=== PATIENT | male | born 1970 | race African-American/Black ===

== ENCOUNTER 2022-10-08 21:08 | Emergency (ER) | payer OTHER, SELFPAY ==
--- NOTE | ~2022-10-08 | US_ITS ---
EXAMINATION: US ABDOMEN LIMITED CLINICAL INFORMATION: Elevated bilirubin. Nausea and vomiting.. COMPARISON: None TECHNIQUE: Real-time imaging of the right upper quadrant abdominal viscera. FINDINGS: GALLBLADDER: Small amount of sludge in the gallbladder lumen. The gallbladder is physiologically distended without evidence of stones, polyps, wall thickening or pericholecystic fluid. COMMON BILE DUCT: Normal in caliber measuring 0.3 cm in diameter. FREE FLUID: None. US/US abdomen limited IMPRESSION: Small amount of gallbladder sludge. No inflammation. Normal caliber common bile duct.
--- NOTE | ~2022-10-08 | XR_ITS ---
EXAMINATION: XR ABDOMEN COMPLETE CLINICAL INDICATION: Question constipation COMPARISON: None TECHNIQUE: 2 views of the abdomen. FINDINGS: Nonobstructing bowel gas pattern. No dilated loops of bowel. Scattered gas and stool throughout the colon with mild colonic stool burden. No free air on the upright view. No air-fluid levels. The lung bases are clear. No acute osseous abnormality. XR/XR abdomen min 2V IMPRESSION: Mild colonic stool burden.
[2022-10-08 21:14] VITALS: BP 165/85; PULSE 101; RESP 16; TEMP 36.7; O2SAT 98; BMI 31.6
[2022-10-08 21:50] LABS: MANUAL DIFF FLAG NO
[2022-10-08 21:54] LABS: Basophils Absolute Auto 0.1 X10*3/uL (0.0-0.2); Basophils Percent Auto 0.4 % (0-2); Eosinophils Absolute Auto 0.1 X10*3/uL (0.0-0.4); Eosinophils Percent Auto 0.6 % (0-4); Hematocrit 46.8 % (42.0-52.0); Hemoglobin 16.4 g/dl (14.0-18.0); Imm Gran Abs Auto 0.04 X10*3/uL (0.00-0.03); Imm Gran Pct Auto 0.4 % (0.0-0.4); Lymphocytes Absolute Auto 2.6 X10*3/uL (1.2-4.9); Mean Corpuscular Hemoglobin 29.7 pg (27.0-33.0); Mean Corpuscular Volume 84.6 fL (80.0-98.0); Mean Platelet Volume 9.6 fL (9.4-12.4); Monocytes Absolute Auto 0.8 X10*3/uL (0.1-1.2); Monocytes Percent Auto 7.3 % (2-11); Neutrophils Absolute Auto 7.7 x10*3/uL (2.0-8.3); Neutrophils Percent Auto 68.3 % (45-73); Platelet Count 262 X10*3/uL (160-400); Red Blood Count 5.53 X10*6/uL (4.60-5.80); Red Cell Distribution Width 12.6 % (11.0-16.0); White Blood Count 11.3 X10*3/uL (4.8-10.8)
[2022-10-08 22:16] LABS: Alanine Aminotransferase 53 U/L (0-40); Albumin Level 4.8 g/dL (3.5-5.0); Alkaline Phosphatase 130 U/L (39-117); Anion Gap 18 (12-20); Aspartate Amino Transferase 56 U/L (5-37); Bilirubin Total 1.1 mg/dL (0.0-1.0); Blood Urea Nitrogen 10 mg/dL (9-16); Calcium 9.7 mg/dL (8.4-10.2); Carbon Dioxide 24 mmol/L (22-29); Chloride 102 mmol/L (96-108); Creatinine Clr Calc Pharmacy 89.9; Estimated Glomerular Filt Rate > 60; Glucose Random 91 mg/dL (60-115); Potassium 4.2 mmol/L (3.3-5.1); Sodium 140 mmol/L (135-145); Total Protein 7.9 g/dL (6.5-8.0)
--- NOTE | 2022-10-08 23:37 | ED.GENADULT ---
HPI - General Adult General Chief complaint: Abdominal Pain Stated complaint: bilateral lower leg swelling,abd pain Time Seen by Provider: 10/08/22 23:12 Source: patient and RN notes reviewed Mode of arrival: ambulatory Limitations: no limitations History of Present Illness HPI narrative: 52-year-old male presents for evaluation of multiple complaints The patient is in triage assessment states he is here for he had ?diabetic sore toe left foot, not digesting food, no bowel movements in 3 days. When I 1st walked in the room the patient reports ?my blood pressure has stopped working and my blood is not pumping. ? He also reports that his ?kidneys are shutting down because having pain since earlier. ? Patient reports that his abdomen is ?full of water. ? He reports discoloration to his feet He states all this happened a few days Patient reports ?I have a all of the signs of cancer. ? Related Data Previous Rx's Medication Instructions Recorded polyethylene glycol 3350 17 17 g PO DAILY 2 weeks #238 grams 10/09/22 gram/dose oral powder (Miralax) Allergies Allergy/AdvReac Type Severity Reaction Status Date / Time Penicillins Allergy Rash Verified 10/08/22 21:31 Review of Systems Constitutional: Constitutional: Reports body ache(s), Denies chills, Denies fever(s), Reports malaise and Reports weakness Eyes: Eyes: Denies blurry vision ENT: Denies sore throat Cardiovascular: Cardiovascular: Denies chest pain and Denies dyspnea Respiratory: Respiratory: Denies cough and Denies dyspnea Gastrointestinal: Gastrointestinal: Reports abdominal pain, Reports bloating, Reports constipation and Reports diarrhea Genitourinary: Genitourinary: Reports urinary hesitancy Integumentary/Breasts: Skin/Breast: Reports wounds Neurologic: Reports weakness PMFSH Social History Social History Alcohol intake: never Smoked in Last 30 Days: Yes Use of substances other than those prescribed or required for medical reasons: Yes Substance Use Type: Marijuana Advance Directives: No Advance Directives Information Provided: No Physical Exam ED Vital Signs: Vital Signs - 24 hr 10/08/22 21:14 10/08/22 23:41 Temperature 98.1 F 98.2 F Pulse Rate 101 H 83 Respiratory Rate 16 16 Blood Pressure 165/85 H 152/94 H Pulse Oximetry 98 99 Oxygen Delivery Method Room Air Room Air BMI result Body Mass Index 31.6 Const General: cooperative, healthy appearing, comfortable, no acute distress and well developed Orientation/consciousness: patient oriented x3 Limitations: no limitations HENWA Head: Yes normocephalic and Yes atraumatic Eyes Eyelids: Yes eyelids normal Conjunctivae: conjunctivae normal Sclerae: sclerae normal Corneas: corneas normal Pupils: Equal, round and reactive pupils present and Pupil accommodation reflex normal Resp Effort & Inspection: normal respiratory effort, able to speak in complete sentences and normal respiratory pattern Auscultation: clear to auscultation bilaterally Cardio Rate: regular rate Rhythm: regular rhythm Heart sounds: S1 normal heart sound present and S2 normal heart sound present Peripheral pulses: Peripheral pulses 2+ throughout GI Inspection: Yes normal to inspection, No abdominal wall ecchymosis, No Abdominal wall edema and No distended Palpation (GI): Soft to palpation, nontender and no guarding Percussion: No Fluid wave present Auscultation: normoactive bowel sounds Skin General skin exam: no rashes or lesions noted (Including to feet bilaterally despite the patient indicating he has ulcers) Neuro General: patient oriented x3 Cranial nerves: Yes CN's II-XII intact bilaterally, Yes Equal, round and reactive pupils present and Yes Bilaterally intact EOM present Extrem General: Yes full ROM Psych Appearance: grossly normal Speech and movement: Normal speech and movement present Affect: normal affect Attitude: cooperative Insight: Limited insight present (Psych) Judgement: Limited judgement present (Psych) Course Reevaluation(s) Reevaluation #1: Patient's workup largely unremarkable, his mild transaminitis was evaluated with ultrasound which shows fatty liver. Despite his report of urinary retention, he has 150 cc of urine in the bladder. He also reports urinating earlier today, he does not clinically have urinary retention. Patient has numerous other complaints with no objective findings. He is stable for discharge to follow-up with his PCP the x-rays and did show constipation however he will be treated with MiraLax Time: 01:25 Medical Decision Making Medical Decision Making MDM Narrative: This is a 52-year-old male presenting for evaluation of multiple complaints. The patient reports that his ?blood pressure is not working and not pumping. ? When I evaluated the patient, he appears well, his skin is warm, well perfused. He has 2+ pulses throughout. On explained to the patient he switched his complaint to ?my kidneys shut down today. ? He reports that he has not urinated since this morning. I explained to him that his renal function was within normal limits but we will get a bladder scan to assess for urinary retention. His abdomen is nontender and nondistended. I have low suspicion for attention. Will get a KUB to evaluate for constipation. Patient reports he is not having a bowel movement 3 days. Furthermore he reports that he has diabetic ulcers to both of his feet despite not having any wounds or discoloration noted. I Think the patient may have an underlying psychiatric disorder. He is not homicidal, not suicidal. He is not a threat to himself or anybody else. Will complete the appropriate workup and the patient can follow-up with his primary doctor for additional concerns Differential Diagnosis Anxiety Paranoia Ulcers Constipation Bowel obstruction Ileus JUDY Obstructive uropathy Lab Data MDM Lab Attestation statement: I reviewed the patient's lab results. Very mild transaminitis. Uncertain etiology but no clinical significance. The patient has no right upper quadrant tenderness to suggest biliary disease. We will order GB ultrasound regardless 10/08/22 21:46 10/08/22 21:46 Labs: Lab Results 10/08/22 10/08/22 Range/Units 21:46 21:46 WBC 11.3 H (4.8-10.8) X10*3/uL RBC 5.53 (4.60-5.80) X10*6/uL Hgb 16.4 (14.0-18.0) g/dl Hct 46.8 (42.0-52.0) % MCV 84.6 (80.0-98.0) fL MCH 29.7 (27.0-33.0) pg MCHC 35.0 (31.0-36.0) g/dl RDW 12.6 (11.0-16.0) % Plt Count 262 (160-400) X10*3/uL MPV 9.6 (9.4-12.4) fL Immature Gran % (Auto) 0.4 (0.0-0.4) % Neut % (Auto) 68.3 (45-73) % Lymph % (Auto) 23.0 (20-40) % Sullivan % (Auto) 7.3 (2-11) % Eos % (Auto) 0.6 (0-4) % Baso % (Auto) 0.4 (0-2) % Lymph # (Auto) 2.6 (1.2-4.9) X10*3/uL Sullivan # (Auto) 0.8 (0.1-1.2) X10*3/uL Eos # (Auto) 0.1 (0.0-0.4) X10*3/uL Baso # (Auto) 0.1 (0.0-0.2) X10*3/uL Abs Immat Gran (auto) 0.04 H (0.00-0.03) X10*3/uL Absolute Neuts (auto) 7.7 (2.0-8.3) x10*3/uL Absolute Nucleated RBC 0.000 (0.0-0.012) X10*3/uL Nucleated RBC % (auto) 0.0 (0.0-0.2) /100WBC Sodium 140 (135-145) mmol/L Potassium 4.2 (3.3-5.1) mmol/L Chloride 102 (96-108) mmol/L Carbon Dioxide 24 (22-29) mmol/L Anion Gap 18 (12-20) BUN 10 (9-16) mg/dL Creatinine 0.97 (0.5-1.4) mg/dL Estim Creat Clear Calc 89.9 Estimated GFR > 60 Random Glucose 91 (60-115) mg/dL Calcium 9.7 (8.4-10.2) mg/dL Total Bilirubin 1.1 H (0.0-1.0) mg/dL AST 56 H (5-37) U/L ALT 53 H (0-40) U/L Alkaline Phosphatase 130 H (39-117) U/L Total Protein 7.9 (6.5-8.0) g/dL Albumin 4.8 (3.5-5.0) g/dL Independent Interpretation I performed an independent interpretation of an: Plain X-Ray and Ultrasound (Fatty liver, gallbladder sludge without evidence of cholecystitis fluid) Interpretation: Constipation with nonobstructive bowel pattern of abdominal x-ray. Discharge Plan Discharge Clinical Impression: Acute constipation, Fatty liver Patient Disposition: Home, Self-Care Instructions: Constipation (ED) Additional Instructions: Your workup in the emergency department was significant for constipation. Take MiraLax every night for the next 2 weeks to treat this Your ultrasound showed that you have fatty liver. Your blood work was reassuring, her kidney function is normal. Follow-up any additional concerns with your primary doctor Prescriptions: New polyethylene glycol 3350 [Miralax] 17 gram/dose powder 17 g PO DAILY 14 Days Qty: 238 0RF
[2022-10-08 23:41] VITALS: BP 152/94; PULSE 83; RESP 16; TEMP 36.8; O2SAT 99
== END 2022-10-09 01:57 | disposition home or self-care (01) ==
PROVIDERS: Emergency Provider Emergency Medicine; PCP Internal Medicine
DX: F12.90 Cannabis use, unspecified, uncomplicated (principal); K59.00 Constipation, unspecified; K76.0 Fatty (change of) liver, not elsewhere classified
CPT/HCPCS: 36415; 51798; 74019; 76705; 80053; 85025; 99284